=== PATIENT | male | born 1965 | race Caucasian/White ===

== ENCOUNTER 2021-08-27 01:42 | Emergency (ER) | payer BC ==
[2021-08-27 01:49] VITALS: BMI 34.2
[2021-08-27] MEDS ORDERED: LIDOCAINE 5% TOPICAL PATCH TP ONE (02:06)
[2021-08-27 02:10] VITALS: PULSE 80; TEMP 98.8
[2021-08-27] MEDS ORDERED: LIDOCAINE 5% TOPICAL PATCH ONE (02:10)
[2021-08-27 02:35] VITALS: BP 213/97
[2021-08-27] MEDS ORDERED: amLODIPine BESYLATE 10 MG TABLET (FP) PO ONE (02:44)
[2021-08-27] MEDS ORDERED: amLODIPine BESYLATE 5 MG TABLET (FP) ONE (02:55)
[2021-08-27] MEDS ORDERED: LIDOCAINE PATCH REMOVAL MC SCH (22:00)
== END 2021-08-27 03:10 | disposition home or self-care (01) ==
LOC: FER 01:42
DX: M62.830 Muscle spasm of back (principal)
CPT/HCPCS: 99283-25

== ENCOUNTER 2022-09-21 04:15 | Day surgery (SDC) | payer BC ==
[2022-09-20 13:15] VITALS: BMI 29.9
[2022-09-21 12:46] VITALS: TEMP 98
[2022-09-21 13:43] VITALS: BP 145/73; PULSE 56; RESP 16
== END 2022-09-21 13:25 | disposition home or self-care (01) ==
LOC: JASU-ENDO 04:15
PROVIDERS: ATTEND Internal Medicine Gastroenterology
PROC: 0DJD8ZZ Inspection of Lower Intestinal Tract, Via Natural or Artificial Opening Endoscopic (ICD-10-PCS; principal; 2022-09-21 11:15)
DX: Z12.11 Encounter for screening for malignant neoplasm of colon (principal)
CPT/HCPCS: 82962; 88305-TC

== ENCOUNTER 2023-09-16 09:26 | Emergency (ER) | payer BC, OTHER ==
[2023-09-16] MEDS: KETOROLAC TROMETHAMINE 30 MG/1 ML VIAL IM ONE (09:44)
[2023-09-16] MEDS: CYCLOBENZAPRINE HCL 10 MG TABLET (FP) PO ONE (09:44)
[2023-09-16] MEDS ORDERED: KETOROLAC TROMETHAMINE 30 MG/1 ML VIAL ONE (09:46)
[2023-09-16] MEDS ORDERED: CYCLOBENZAPRINE HCL 5 MG TABLET ONE (09:46)
[2023-09-16 09:47] VITALS: BP 108/101; PULSE 75; RESP 18; TEMP 98.2; BMI 33.2
== END 2023-09-16 10:42 | disposition home or self-care (01) ==
LOC: FER 09:26
PROC: 2W3FX1Z Immobilization of Left Hand using Splint (ICD-10-PCS; principal; 2023-09-16)
DX: S39.012A Strain of muscle, fascia and tendon of lower back, initial encounter (principal); X58.XXXA Exposure to other specified factors, initial encounter
CPT/HCPCS: 99284-25

== ENCOUNTER 2024-10-13 07:08 | Day surgery (SDC) | payer BC, OTHER ==
[2024-10-10 12:30] VITALS: BMI 34.4
[2024-10-13 10:37] VITALS: TEMP 98
[2024-10-13 11:21] VITALS: BP 144/79; PULSE 60; RESP 13
== END 2024-10-13 11:25 | disposition home or self-care (01) ==
LOC: JASU-ENDO 07:08
PROVIDERS: ATTEND Internal Medicine Gastroenterology
PROC: 0DB78ZX Excision of Stomach, Pylorus, Via Natural or Artificial Opening Endoscopic, Diagnostic (ICD-10-PCS; 2024-10-13)
PROC: 0DB68ZX Excision of Stomach, Via Natural or Artificial Opening Endoscopic, Diagnostic (ICD-10-PCS; 2024-10-13)
PROC: 0DB38ZX Excision of Lower Esophagus, Via Natural or Artificial Opening Endoscopic, Diagnostic (ICD-10-PCS; 2024-10-13)
PROC: 0DB48ZX Excision of Esophagogastric Junction, Via Natural or Artificial Opening Endoscopic, Diagnostic (ICD-10-PCS; 2024-10-13)
PROC: 0DB98ZX Excision of Duodenum, Via Natural or Artificial Opening Endoscopic, Diagnostic (ICD-10-PCS; principal; 2024-10-13 10:15)
DX: K21.00 Gastro-esophageal reflux disease with esophagitis, without bleeding (principal); K29.50 Unspecified chronic gastritis without bleeding
CPT/HCPCS: 82962; 88305-TC; 88342-TC